=== PATIENT | female | born 1975 | race Caucasian/White ===

== ENCOUNTER → 2022-05-01 | Outpatient (CLI) | payer SELFPAY ==
[~2022-05-01] VITALS: Ht 160 cm; Wt 79.5 kg
[~2022-05-01] MED LIST: ALPR.5T PO; LIDOCAINE 1% INJ 20 ML VIAL INJ ONE; MULT-608 PO; OXYC-12 PO
--- NOTE | 2022-05-01 16:23 | Diagnostic Imaging Report ---
INDICATION: Right breast calcifications. PROCEDURE: Patient presents for stereotactic biopsy. The patient was brought to the stereotactic suite, placed in a chair in the sitting upright position. The right breast was positioned medial lateral. Imaging of the right breast was performed for targeting purposes. The cluster of microcalcifications in the lower portion of the right breast posterior depth were stereotactically targeted. Skin of the medial right breast was prepped and draped in the usual sterile fashion. Small amount of 1% lidocaine was utilized for superficial and deep anesthesia. An 8-gauge needle was advanced and placed per stereotactic coordinates. A total of 4 core biopsies were obtained utilizing the vacuum-assisted device. Specimen radiograph demonstrates calcifications within core samples labeled #3 and #4. A marker clip was then deployed. All images were viewed on a dedicated workstation. Postprocedure 2-D CC and ML mammogram was performed demonstrating a marker clip in the posterior inferior right breast. Previously noted calcifications have largely been removed. The patient tolerated the procedure well and left the department in stable condition. IMPRESSION: Successful stereotactic biopsy of right breast calcifications in the lower posterior aspect utilizing the vacuum-assisted device. Pathology results are currently pending. Dictated by: Dictated on workstation # [id number]
== END ==
LOC: RAD 10:30
PROVIDERS: ATTEND Nurse Practitioner
DX: R92.1 Mammographic calcification found on diagnostic imaging of breast (principal)
CPT/HCPCS: 19081

== ENCOUNTER → 2022-09-08 | Outpatient (CLI) | payer OTHER ==
[~2022-09-08] MED LIST changes: -LIDOCAINE 1% INJ 20 ML VIAL INJ ONE
== END ==
LOC: RAD 11:52
PROVIDERS: ATTEND Nurse Practitioner
DX: R92.1 Mammographic calcification found on diagnostic imaging of breast (principal); Z53.9 Procedure and treatment not carried out, unspecified reason